=== PATIENT | female | born 1935 | race Two or more races ===

== ENCOUNTER 2020-09-03 08:02 | Outpatient (CLI) | payer OTHER | END 2020-09-03 08:21 | disposition HB | LOC: TOM 08:02 | DX: K57.90 Diverticulosis of intestine, part unspecified, without perforation or abscess without bleeding (principal); K42.9 Umbilical hernia without obstruction or gangrene; R10.13 Epigastric pain; K59.02 Outlet dysfunction constipation; Z80.0 Family history of malignant neoplasm of digestive organs; Z12.11 Encounter for screening for malignant neoplasm of colon; K44.9 Diaphragmatic hernia without obstruction or gangrene ==